=== PATIENT | male | born 1940 | race Caucasian/White ===

== ENCOUNTER 2016-09-15 11:55 | Outpatient (CLI) | payer OTHER ==
[~2016-09-15 11:55] MED LIST: ASPIRIN EC81 MG PO; CALCIUM 500 PO; HYDROCHLOROTH12.5 M1 PO; LISINOPRIL40 MG PO; MULTIPLE VITAMIN PO; NIACIN ER500 MG PO; VITAMIN C1000 MG PO; VITAMIN D-31000 UNIT PO
--- NOTE | 2016-09-15 13:25 | DIAGNOSTIC IMAGING REPORT ---
PROCEDURE: XR CHEST 2 VIEW INDICATION: CHEST PAIN TECHNIQUE: PA and lateral views. COMPARISON: None. FINDINGS: Lungs are clear. Heart and mediastinum are normal. Thorax is normal. IMPRESSION: 1. Negative chest.
[2016-10-15] MEDS ORDERED: PANTOPRAZOLE SO40 MG PO (16:08)
[2016-10-15] MEDS ORDERED: RANITIDINE HCL150 MG PO (16:09)
[2016-10-15] MEDS ORDERED: PROAIR HFA IN (16:10)
== END 2016-09-15 23:00 ==
LOC: LAB SRH 11:55
DX: R07.9 Chest pain, unspecified (principal)
CPT/HCPCS: 90074; 90100; 90616; 95059

== ENCOUNTER 2016-12-18 09:18 | Outpatient (CLI) | payer OTHER ==
[~2016-12-18 09:18] MED LIST changes: +PANTOPRAZOLE SO40 MG PO; +PROAIR HFA IN; +RANITIDINE HCL150 MG PO
--- NOTE | 2016-12-18 10:29 | DIAGNOSTIC IMAGING REPORT ---
PROCEDURE: US ABDOMEN VASCULAR-AAA INDICATION: AORTIC ANEURYSM TECHNIQUE: Naik scale, color Doppler and spectral ultrasound of the abdominal aorta. COMPARISON: Abdominal ultrasound 07/12/2015. FINDINGS: Moderate atherosclerosis. Maximal diameter of the aorta: 3.7 cm proximally, 3.4 cm mid and 2.3 cm distally. Right iliac artery measures 1.1 cm and left iliac artery 1.3 cm. IMPRESSION: 1. 3.7 cm proximal (previously 3.6) and 3.4 cm mid (previously 3.2) abdominal aortic aneurysms.
--- NOTE | 2016-12-18 10:35 | DIAGNOSTIC IMAGING REPORT ---
PROCEDURE: DEXA BONE DENSITY STUDY CLINICAL INDICATION: CHECK FOR OSTEOPOROSIS COMPARISON: None. FINDINGS: LUMBAR SPINE: Bone mineral density 0.983 g/cm2, T score -1.0 normal LEFT HIP: Bone mineral density 0.734 g/cm2, T score -2.0 osteopenia LEFT FEMORAL NECK: Bone mineral density 0.485 g/cm2, T score -3.3 osteoporosis FRACTURE RISK CALCULATION ( when applicable): 10-year fracture risk of a major osteoporotic fracture and of a hip fracture not reported because some T-score at or below -2.5 (T score greater or equal to -1.0 to: NORMAL) (T score from -1.1 to -2.4: OSTEOPENIA) (T score ess than or equal to -2.5: OSTEOPOROSIS) IMPRESSION: 1. Osteoporosis femoral neck, osteopenia left hip.
== END 2016-12-18 23:00 ==
LOC: US SRH 09:18
DX: M81.0 Age-related osteoporosis without current pathological fracture (principal); I71.4 Abdominal aortic aneurysm, without rupture

== ENCOUNTER 2017-01-01 09:18 | Outpatient (CLI) | payer OTHER ==
[2017-01-01 09:52] VITALS: BP 147/89
--- NOTE | 2017-01-01 10:04 | NUR ---
PT HERE FOR OUTPT RECLAST INFUSTION. DRUG WELL EXPLAINED BY PHARMACIST. I WELL EXPLAINED THE CARE PLAN, AND POTENTIAL SIDE EFFECTS WELL ORIENTED PT TO ROOM AND CALL LIGHT. EXPLAINED TO USE CALL LIGHT FOR ANY NEEDS/TO REPORT SIDE EFFECTS. GAVE PT WARM BLANKET AND COFFEE. WILL MONITIOR.
== END 2017-01-01 10:34 | disposition home or self-care (01) ==
LOC: SDP SRH 09:18 → ACUTE2 SRH 09:22 → SDP SRH 10:00
PROC: 3E033GC Introduction of Other Therapeutic Substance into Peripheral Vein, Percutaneous Approach (ICD-10-PCS; principal; 2017-01-01)
DX: M81.0 Age-related osteoporosis without current pathological fracture (principal)

== ENCOUNTER 2017-01-08 11:32 | Emergency (ER) | payer OTHER ==
--- NOTE | 2017-01-08 13:25 | DIAGNOSTIC IMAGING REPORT ---
PROCEDURE: XR CHEST 2 VIEW INDICATION: CHEST PAIN TECHNIQUE: PA and lateral views. COMPARISON: Compared to chest x-ray on 01/08/2017. FINDINGS: Pulmonary hyperexpansion and chronic obstructive pulmonary disease. Development of mild layers subsegmental atelectasis (versus scarring) at the left anterior lung base. Lungs are otherwise clear Heart and mediastinum are normal. Thorax is normal. IMPRESSION: 1. Chronic obstructive pulmonary disease. 2. Minor linear subsegmental atelectasis or scarring at the left anterior lung base. 3. Findings discussed with Dr. Christian Blanca.
--- NOTE | 2017-01-08 15:58 | DIAGNOSTIC IMAGING REPORT ---
PROCEDURE: CTA THORAX WITH CONTRAST INDICATION: CP + D-DIMER TECHNIQUE: 84 ml of Isovue 370 was injected intravenously and axial images were obtained of the chest with 3D sagittal and coronal MIP reconstructions. COMPARISON: 10/20/2007 and Chest x-ray From the same day FINDINGS: Normal opacification of the pulmonary arterial tree without filling defect. The central pulmonary arteries are normal caliber. Ectatic thoracic aorta measuring 3.4 cm in the ascending portion, 3.0 cm at the arch, and 3.3 cm in the descending portion. Scattered mixed calcified and noncalcified atherosclerosis. Moderate coronary artery calcification. Small anterior pericardial thickening. No pericardial effusion. Mild calcification at the origins of the great vessels. Bovine arch anatomy. No adenopathy or mediastinal masses. The esophagus is normal in caliber without hiatal hernia. The thyroid gland is normal. Moderate centrilobular emphysematous changes in the upper lobes. Moderate interstitial scarring bilaterally in the lower lobes. 9 mm nodule left lower lung adjacent a curvilinear interstitial scarring. Mild right base atelectatic changes. Central lobular cystic changes of emphysema in the right lower lobe as well. Scattered areas of upper lobe patchy opacity, likely tiny scars or inflammatory changes. Minor lingular atelectasis. The airway is patent and branches normally. No pleural effusions or pneumothorax. Osseous structures are intact. The images obtained of the upper abdomen are normal. IMPRESSION: 1. No pulmonary embolus. 2. Moderate emphysema. 3. 9 mm left lower lobe lung nodule suggestive of rounded atelectasis, however given emphysematous changes, 3-month follow-up chest CT is recommended for further evaluation. 4. Bilateral interstitial and parenchymal scarring. 5. Findings called to the emergency room.
--- NOTE | 2017-01-08 16:32 | ED ORDER SUMMARY ---
..... Patient: AWAIS ALCALA OrderSheet [facility] VisitID: [id number] [address] [place] [address] 76y, M Registration Date/Time: 01/08/2017 ORDER SHEET Weight: 61.2 kg (stated) Allergies: Penicillins, Eggs or Egg-derived Products GENERAL ORDERS: Chest 2V Urgent (12:01/08/2017 Keyonna Montelongo) (Ack 12:09 Rosaura ER Tech1) (12:59 RFay) Corduroy Cutter Operator (Continuous) (CP) (12:01/08/2017 Keyonna Montelongo) (Ack 12:09 Rosaura ER Tech1) (12:09 DDean R.N.) CBC w Diff Urgent (12:01/08/2017 Keyonna Montelongo) (Ack 12:09 Rosaura ER Tech1) (12:32 DDean R.N.) CMP Urgent (12:01/08/2017 Keyonna Montelongo) (Ack 12:09 Rosaura ER Tech1) (12:32 DDean R.N.) PT with INR Urgent (12:01/08/2017 Keyonna Montelongo) (Ack 12:09 Rosaura ER Tech1) (12:32 DDean R.N.) D-Dimer Urgent (12:01/08/2017 Keyonna Montelongo) (Ack 12:09 Rosaura ER Tech1) (12:32 DDean R.N.) Troponin-I Urgent (12:01/08/2017 Keyonna Montelongo) (Ack 12:09 Rosaura ER Tech1) (12:32 DDean R.N.) Pulse oximeter (12:01/08/2017 Keyonna Montelongo) (12:09 DDean R.N.) (Ack 12:09 Rosaura QUINONES Tech1) EKG - ER Stat (12:01/08/2017 Keyonna Montelongo) (Ack 12:09 Rosaura ER Tech1) (13:03 RKaruga) TSH Urgent (12:01/08/2017 Keyonna Montelongo) (Ack 12:09 IJurca ER Tech1) (12:32 DDean R.N.) CTA Thorax w Cont (No) (N/A) Urgent (14:45 01/08/2017 Keyonna Montelongo) (Ack 14:49 IJalexandria ER Tech1) (15:53 RFay) MEDICATION ORDERS: - (Benztropine IV 1 mg once now) (15:51 01/08/2017 Keyonna Montelongo) (Cancelled: Other15:52 Keyonna Montelongo) IV FLUIDS: IV NS : initial bolus 500 mL (1000 mL/hr), then none - for X1 (NOW) (12:07 01/08/2017 Keyonna Montelongo) (12:35 DDean R.N.) ORDER SHEET NOTES: [Electronically signed by Ila Templeton R.N. (17:55 01/08/2017)] [Electronically signed by Christian Blanca Dr. (16:53 01/12/2017)] [Electronically locked/signed by Ila Templeton R.N. (17:55 01/08/2017)]
--- NOTE | 2017-01-08 16:32 | ED NURSING NOTES ---
Clinical Report - Nurses [facility] [address] [place] [address] 01/08/2017 11:32 [id number] Triage time 11:40. Acuity: LEVEL 3. Chief Complaint: HEADACHE, WEAKNESS and NECK PAIN (stiff neck, CP with deep breath). Alert. No acute distress. JEANETTE COMA SCORE: [place] Coma Scale: 15- eyes open spontaneously (4); best verbal response- oriented x 4 (5); best motor response- obeys commands (6). --11:50 Ila Templeton R.N. 11:39 01/08/17. BP: 152/85. HR: 99. RR: 14. O2 saturation: 98% on room air. Temp: 98.7 F (oral). Pain level now: 06/16. --11:50 Ila Templeton R.N. Weight: 61.2 kg stated. Height/Length: 70 inches Per Patient. BMI: 19.4. --11:48 Ila Templeton R.N. Medications Ranitidine HCl Oral 150 mg, 2x a day. --12:08 Ila Templeton R.N. Pantoprazole Sodium Oral 40 mg, daily. --12:09 Ila Templeton R.N. Lisinopril Oral 40 mg, daily. --12:09 Ila Templeton R.N. ProAir HFA Inhalation 2 puffs, 4x a day as needed. --12:10 Ila Templeton R.N. Hydrochlorothiazide Oral 25 mg, daily. --12:10 Ila Templeton R.N. Incruse Elpt 1 puff, daily. --12:12 Ila Templeton R.N. Allergies Penicillins. --11:44 Ila Templeton R.N. Eggs or Egg-derived Products. --11:44 Ila Templeton R.N. History Arrived by private vehicle. Historian: patient and family. Accompanied by family. Primary physician (Jacinta). ( had RECLAST 5 mg one week ago and symptoms started last thursday and increasing daily). SOCIAL HX: Smoker- current status unknown (tobacco pouches). Alcohol use; consumes two liquor daily. History of drug use: marijuana. FALL RISK ASSESSMENT: Fall risk assessment completed. No fall risk identified. FUNCTIONAL ASSESSMENT: Functional assessment: no impairments noted. LEARNING NEEDS ASSESSMENT: The learning needs assessment revealed no barriers. --11:50 Ila Templeton R.N. PROBLEMS: Osteoporosis. Hypertension. Gastroesophageal Reflux Disease. COPD - Chronic Obstructive Pulmonary Disease. --11:46 Ila Templeton R.N. ADDITIONAL SURGERIES: Appendectomy. Tonsillectomy. --11:46 Ila Templeton R.N. Assessment GENERAL / NEURO / PSYCH: Alert. Oriented X 4. Appears in no acute distress. Patient appears calm and cooperative. RESPIRATORY: Respirations not labored. CVS: Cardiac rhythm: sinus tachycardia; occasional ectopic beats. --11:50 Ila Templeton R.N. Interventions ID and allergy band on patient. To treatment room. --11:50 Ila Templeton R.N. PHYSICAL ASSESSMENT 11:53 01/08/17. To room via wheelchair. Patient gowned. ( decreased appetite, bilat thumb joint pain and swelling). GENERAL / NEURO / PSYCH: Alert. Oriented X 4. Appears in no acute distress. RESPIRATORY: Respirations not labored. CVS: Cardiac rhythm: sinus tachycardia; occasional ectopic beats. SKIN: Skin is warm and dry. --11:53 Ila Templeton R.N. NURSING PROGRESS NOTES 11:50 01/08/2017 Site #1 started via IV in the left antecubital space with an 20g angiocath, with aseptic technique and good blood return; one attempt. Blood drawn: rainbow set. Labeled in the presence of the patient and sent to the lab. Saline lock flushed with 10 mL saline. --12:09 Jerrica Ayala R.N. 11:54 01/08/17. Cardiac rhythm: sinus rhythm; occasional ectopic beats. electronic device monitor, pulse oximeter and NIBP monitor placed on patient. Patient gowned. Head of bed elevated. Call light placed in reach. Side rails up x 1. Bed placed in lowest position. Brakes of bed on. --11:54 Ila Templeton R.N. 12:34 01/08/2017 Started bag #1 1000 mL IV Fluids IV NS (Saline); bolus of 500 mL over 30 minute(s) then at 50 mL/hr over 10 hour(s) via site #1 via IV pump. Allergies verified and confirmed 5 rights. IV patency established. IV site checked: no pain, redness, or swelling. IV flushed thoroughly pre- and post-medication administration. --12:35 Jerrica Ayala R.N. EKG time: (12:16 PM). EKG was performed by a tech and shown to the ED physician. --13:04 Junie Jarvis 13:14 01/08/2017 IV Fluids IV NS via IV site #1 Rate Changed: bag #1 decreased to 50 mL/hr via IV pump. --13:15 Ila Templeton R.N. 13:16 01/08/17. The patient is resting quietly. Overall patient status is the same- he states feels the same. RESPIRATORY: No respiratory distress. CVS: Cardiac rhythm: sinus rhythm. SKIN: Skin is warm and dry. --13:16 Ila Templeton R.N. 13:25 01/08/17. BP: 130/81. HR: 88. RR: 18. O2 saturation: 96% on room air. Temp: deferred. Pain level now: 10/10. Additional comments: pt states that his hand pain/joint swelling started in thumbs 3 days ago, now also in 4th and 5th digits. This is a new problem. --13:31 Jerrica Ayala R.N. 14:04 01/08/17. ( ambulated to bathroom. stable on feet). --14:04 Jerrica Ayala R.N. 14:19 01/08/17. The patient is resting quietly. Overall patient status is the same- he states feels the same. RESPIRATORY: No respiratory distress. SKIN: Skin is warm and dry. --14:22 Ila Templeton R.N. 15:26 01/08/17. BP: 158/98. HR: 87. RR: 18. O2 saturation: 100%. --15:27 Ila Templeton R.N. 15:26 01/08/17. The patient is resting quietly. Overall patient status is the same- he states feels the same. RESPIRATORY: No respiratory distress. SKIN: Skin is warm and dry. --15:27 Ila Templeton R.N. 15:30 pt c/o being hungry, ERMD OK with him eating now. --15:30 Ila Templeton R.N. ( splitting machine operator helper was at patient's bedside to help with disconnecting monitor to allow patient to go to the restroom.). --15:46 Junie Jarvis 16:15. Reassessment after fluids administered and procedure. He is calm and resting quietly. Overall patient status is improved- he states feels the same. RESPIRATORY: No respiratory distress. CVS: Cardiac rhythm: sinus rhythm. SKIN: Skin is warm and dry. --17:20 Ila Templeton R.N. 17:05. The patient is resting quietly. Overall patient status is improved- he states feels better. RESPIRATORY: No respiratory distress. SKIN: Skin is warm and dry. --17:20 Ila Templeton R.N. 17:05 01/08/2017 Site #1 removed upon discharge. Catheter intact. Bandaid applied. --17:21 Ila Templeton R.N. 17:01/08/2017 IV Fluids IV NS Discontinued: bag #1 discontinued upon discharge. Total amount infused: 700 mL. --17:21 Ila Templeton R.N. 12:15 01/08/17. BP: 120/74. HR: 98. RR: 15. O2 saturation: 97% on room air. --17:52 Ila Templeton R.N. 14:15 01/08/17. BP: 140/82. HR: 84. RR: 11. O2 saturation: 96%. --17:53 Ila Templeton R.N. 16:15 01/08/17. BP: 136/85. HR: 90. RR: 11. O2 saturation: 97% on room air. --17:54 Ila Templeton R.N. DISPOSITION / DISCHARGE Departure time: 1705. Condition at departure: stable. No learning barriers present. Discharge instructions provided and reviewed with the patient. Reviewed medication(s). Prescription(s) given to the patient. Patient verbalized understanding. Written instructions provided in Cook Islander. The patient was discharged home and accompanied by spouse. He left the Emergency Department ambulatory and via private vehicle. Spouse driving. FALL RISK ASSESSMENT: Fall risk assessment completed. No fall risk identified. --17:19 Ila Templeton R.N. 17:05 01/08/17. BP: 144/94. HR: 88. RR: 20. O2 saturation: 99% on room air. Pain level now: 03/16. --17:19 Ila Templeton R.N. Locked/Released at 01/08/2017 17:55 by Ila Templeton R.N.
--- NOTE | 2017-01-08 16:32 | ED ORDER SUMMARY ---
..... Patient: AWAIS ALCALA OrderSheet [facility] VisitID: [id number] [address] [place] [address] 76y, M Registration Date/Time: 01/08/2017 ORDER SHEET Weight: 61.2 kg (stated) Allergies: Penicillins, Eggs or Egg-derived Products GENERAL ORDERS: Chest 2V Urgent (12:01/08/2017 Keyonna Montelongo) (Ack 12:09 Rosaura ER Tech1) (12:59 RFay) Exchange Floor Manager (Continuous) (CP) (12:01/08/2017 Keyonna Montelongo) (Ack 12:09 Rosaura ER Tech1) (12:09 DDean R.N.) CBC w Diff Urgent (12:01/08/2017 Keyonna Montelongo) (Ack 12:09 Rosaura ER Tech1) (12:32 DDean R.N.) CMP Urgent (12:01/08/2017 Keyonna Montelongo) (Ack 12:09 Rosaura ER Tech1) (12:32 DDean R.N.) PT with INR Urgent (12:01/08/2017 Keyonna Montelongo) (Ack 12:09 Rosaura ER Tech1) (12:32 DDean R.N.) D-Dimer Urgent (12:01/08/2017 Keyonna Montelongo) (Ack 12:09 Rosaura ER Tech1) (12:32 DDean R.N.) Troponin-I Urgent (12:01/08/2017 Keyonna Montelongo) (Ack 12:09 Rosaura ER Tech1) (12:32 DDean R.N.) Pulse oximeter (12:01/08/2017 Keyonna Montelongo) (12:09 DDean R.N.) (Ack 12:09 Rosaura QUINONES Tech1) EKG - ER Stat (12:01/08/2017 Keyonna Montelongo) (Ack 12:09 Rosaura ER Tech1) (13:03 RKaruga) TSH Urgent (12:01/08/2017 Keyonna Montelongo) (Ack 12:09 IJurca ER Tech1) (12:32 DDean R.N.) CTA Thorax w Cont (No) (N/A) Urgent (14:45 01/08/2017 Keyonna Montelongo) (Ack 14:49 IJalexandria ER Tech1) (15:53 RFay) MEDICATION ORDERS: - (Benztropine IV 1 mg once now) (15:51 01/08/2017 Keyonna Montelongo) (Cancelled: Other15:52 Keyonna Montelongo) IV FLUIDS: IV NS : initial bolus 500 mL (1000 mL/hr), then none - for X1 (NOW) (12:07 01/08/2017 Keyonna Montelongo) (12:35 DDean R.N.) ORDER SHEET NOTES: [Electronically signed by Ila Templeton R.N. (17:55 01/08/2017)] [Electronically signed by Christian Blanca Dr. (16:53 01/12/2017)] [Electronically locked/signed by Ila Templeton R.N. (17:55 01/08/2017)]
--- NOTE | 2017-01-08 16:32 | ED CLINICAL REPORT ---
Clinical Report - Physicians/Mid Levels Formerly [facility] [address] [place] [address] 01/08/2017 11:32 Patient: AWAIS ALCALA Time Seen: 1202; initial patient contact. Arrived- By private vehicle. Historian- patient. HISTORY OF PRESENT ILLNESS Chief Complaint: CHEST PAIN. At its maximum, severity described as moderate. When seen in the E.D., severity described as moderate. Modifying factors- worsened by deep breaths. Not relieved by anything. It is described as sharp and it is described as located in the central chest area. No radiation. This started Past few days and is still present (worsening). It was gradual in onset and has been intermittent and waxing/waning but is not gone now. Onset during rest. No nausea, vomiting, difficulty breathing or diaphoresis. (rreports recently taking a medication for osteoporosis prior to the onset of his symptoms. Patient also reports generalized body aches and cramping.). No additional chest pain. Similar symptoms previously: None. Recent medical care: Not recently seen/assessed. REVIEW OF SYSTEMS No fever or sore throat. All systems otherwise negative, except as recorded above. PAST HISTORY See nurses notes. Medications: Incruse Elpt 1 puff, daily. Hydrochlorothiazide Oral 25 mg, daily. ProAir HFA Inhalation 2 puffs, 4x a day as needed. Lisinopril Oral 40 mg, daily. Pantoprazole Sodium Oral 40 mg, daily. Ranitidine HCl Oral 150 mg, 2x a day. Allergies: Eggs or Egg-derived Products. Penicillins. SOCIAL HISTORY Never smoker. No alcohol use or drug use. No recent travel. Is a local resident. FAMILY HISTORY Negative. ADDITIONAL NOTES The nursing notes have been reviewed. PHYSICAL EXAM Vital Signs: 01/08/2017 11:39 BP: 152/85. HR: 99. RR: 14. O2 saturation: 98%. Temp: 98.7 F. Pain level now: 10/10. Oxygen saturation normal. Appearance: Alert. Oriented X3. No acute distress. Eyes: Pupils equal, round and reactive to light. Eyes normal inspection. ENT: Ears normal. Nose normal. Pharynx normal. Neck: Normal inspection. Neck supple. No meningeal signs. CVS: Normal heart rate and rhythm. Heart sounds normal. Pulses normal. Respiratory: No respiratory distress. Breath sounds normal. No rales, rhonchi or wheezes. Abdomen: Soft and nontender. Bowel sounds normal. Back: Normal external inspection. Skin: Skin warm and dry. Normal skin color. No rash. Normal skin turgor. Extremities: Extremities exhibit normal ROM. No lower extremity edema. LABS, X-RAYS, AND EKG EKG: Atrial fibrillation (130). Normal QRS complex. Normal axis. Normal ST and T waves, QT and QTc. The study has been interpreted contemporaneously. The study has been independently viewed by me. The EKG appears to be a good tracing. Chest X-ray: (PROCEDURE: XR CHEST 2 VIEW INDICATION: CHEST PAIN TECHNIQUE: PA and lateral views. COMPARISON: Compared to chest x-ray on 01/08/2017. FINDINGS: Pulmonary hyperexpansion and chronic obstructive pulmonary disease. Development of mild layers subsegmental atelectasis (versus scarring) at the left anterior lung base. Lungs are otherwise clear Heart and mediastinum are normal. Thorax is normal. IMPRESSION: 1. Chronic obstructive pulmonary disease. 2. Minor linear subsegmental atelectasis or scarring at the left anterior lung base.). Views: PA and lateral. The X-rays were independently viewed by me and interpreted by the radiologist. The X-rays were discussed with the radiologist (via PACS). Chest CT: (PROCEDURE: CTA THORAX WITH CONTRAST INDICATION: CP + D-DIMER TECHNIQUE: 84 ml of Isovue 370 was injected intravenously and axial images were obtained of the chest with 3D sagittal and coronal MIP reconstructions. COMPARISON: 10/20/2007 and Chest x-ray From the same day FINDINGS: Normal opacification of the pulmonary arterial tree without filling defect. The central pulmonary arteries are normal caliber. Ectatic thoracic aorta measuring 3.4 cm in the ascending portion, 3.0 cm at the arch, and 3.3 cm in the descending portion. Scattered mixed calcified and noncalcified atherosclerosis. Moderate coronary artery calcification. Small anterior pericardial thickening. No pericardial effusion. Mild calcification at the origins of the great vessels. Bovine arch anatomy. No adenopathy or mediastinal masses. The esophagus is normal in caliber without hiatal hernia. The thyroid gland is normal. Moderate centrilobular emphysematous changes in the upper lobes. Moderate interstitial scarring bilaterally in the lower lobes. 9 mm nodule left lower lung adjacent a curvilinear interstitial scarring. Mild right base atelectatic changes. Central lobular cystic changes of emphysema in the right lower lobe as well. Scattered areas of upper lobe patchy opacity, likely tiny scars or inflammatory changes. Minor lingular atelectasis. The airway is patent and branches normally. No pleural effusions or pneumothorax. Osseous structures are intact. The images obtained of the upper abdomen are normal. IMPRESSION: 1. No pulmonary embolus. 2. Moderate emphysema. 3. 9 mm left lower lobe lung nodule suggestive of rounded atelectasis, however given emphysematous changes, 3-month follow-up chest CT is recommended for further evaluation. 4. Bilateral interstitial and parenchymal scarring.). Chest CT performed with contrast. The study was independently viewed by me and interpreted by the radiologist. The study was discussed with the radiologist (via phone and pacs). Laboratory Tests: CBC w Diff: (RENEA: 01/08/2017 11:45) ( Mscvd 01/08/2017 12:43) Final results Test Result Flag Units (Reference) WHITE BLOOD COUNT 5.1 K/uL (4.5-11.5) RED BLOOD COUNT 4.28 L M/uL (4.50-5.90) HEMOGLOBIN 14.0 gm/dL (13.5-17.5) HEMATOCRIT 41.1 % (41.0-53.0) MEAN CELL VOLUME 96 fL (80-100) MEAN CORPUSCULAR HGB 33 pg (26-34) MEAN CORPUSCULAR HGB CONC 34 g/dL (31-37) RED CELL DISTRIBUTION WIDTH 12.7 % (11.6-14.8) PLATELET COUNT 233 K/uL (150-400) NEUTROPHIL % 64.7 % (50-75) LYMPH % 19.7 L % (25-40) MONO % 13.9 % (3-14) EOSINOPHIL % 1.2 % (0-4) BASOPHIL % 0.5 % (0-2) PT with INR: (RENEA: 01/08/2017 11:45) ( MsgRcvd 01/08/2017 12:30) Final results Test Result Flag Units (Reference) INR 1.0 (0.8-1.2) Low Intensity Therapy: INR 1.5-2.0 PT range 18.5-23.1Mod.Intensity Therapy: INR 2.0-3.0 PT range 23.1-31.5High Intensity Therapy: INR 2.5-3.5 PT range 27.4-35.5High Intensity Therapy 2: INR 3.0-4.0 PT range 31.5-39.3 D-DIMER QUANTITATIVE 0.60 H ug/mLFEU (0.27-0.52) The primary value of this quantitative assay relates toits negative predictive value (i.e. exclusion) of pulmonaryembolism/deep vein thrombosis/DIC.Elevated levels of d-dimer may also occur with:, age, cancer, inflammation, liver disease,post-op, infection, hematoma, coronary disease, peripheralarteriopathy, bleeding disorders and thrombolytic treatment.Results should be correlated with other clinical andradiological data.Testing Methodology: Latex Immunoassay CMP: (RENEA: 01/08/2017 11:45) ( MsgRcvd 01/08/2017 14:07) Final results Test Result Flag Units (Reference) GLUCOSE 125 H mg/dL (70-110) BUN 16 mg/dL (7-18) CREATININE 1.5 H mg/dL (0.6-1.3) Estimated GFR 48.36 mL/min Estimated GFR- 58.61 mL/min Note: Persistent reduction over 3 months in eGFR<60 mL/min/1.73 m2 defines CKD. Patients with eGFR values>=60 mL/min/1.73 m2 may also have CKD if evidence ofpersistent proteinuria. Additional information may be foundat www.[email or web address].org. SODIUM 137 mmol/L (136-145) POTASSIUM 3.9 mmol/L (3.5-5.1) CHLORIDE 99 mmol/L (98-107) CARBON DIOXIDE 26 mmol/L (21-32) CALCIUM 8.9 mg/dL (8.5-10.1) TOTAL PROTEIN 7.5 g/dL (6.4-8.2) ALBUMIN 3.5 g/dL (3.3-5.0) BILIRUBIN, TOTAL 0.5 mg/dL (0.0-1.0) ALKALINE PHOSPHATASE 49 U/L (46-116) AST (SGOT) 17 U/L (15-37) ALT (SGPT) 19 U/L (12-78) TROPONIN I 0.06 ng/mL (0.00-1.5) TROPONIN REFERENCE RANGE:<0.1 NEGATIVE0.1-1.5 INDETERMINANT>1.5 POSITIVE THYROID STIMULATING HORMONE 0.520 uIU/mL (0.30-3.74) . PROGRESS AND PROCEDURES Course of Care: the patient is a pleasant 76-year-old male presenting for evaluation of chest pain. At this time symptoms appear to be atypical however directable diagnosis at this time includes pulmonary embolism, pneumonia, myocardial infarction, or aortic dissection. Patient will be evaluated with a d-dimer. Had a discussion with the patient in regards to d-dimer and potential need for CTA of the chest. Initial EKG is noted to be unremarkable. Patient is agreeable to the treatment plan including laboratory studies and chest x-rays well. Patient is otherwise nontoxic and in no acute distress. Patient is smiling and cooperative. Patient declining offers of pain medication at this time. The patient's workup was unremarkable for the findings above. Patient with negative troponin. However patient did have positive d-dimer. Because of the patient's pain symptomatology and positive d-dimer would be concerning for pulmonary embolism or thoracic aortic dissection. Patient is agreeable to the CT scan. Patient's workup is unremarkable for the findings above. No acute findings noted. Because the patient's negative findings here in the emergency department and likely chest pain from the medication he had recently started, do not fill symptoms at this time or cardiac in nature. Had a discussion with the patient in regards to chest pain and follow up for the chest pain. Recommended patient follow-up as an outpatient with cardiology for risk stratification. At this time feel the patient is otherwise at low risk given his negative workup here in emergency department. Patient is stable outpatient candidate. Patient continues to be nontoxic and in no acute distress. Breathing is nonlabored. Discussed with patient his workup here in the emergency department regarding diagnosis, home care, follow-up, and return precautions. All questions have been answered. The patient expressed understanding of these instructions and was agreeable to them. Disposition: Discharged. Condition: good. CLINICAL IMPRESSION 01/08/2017 15:26 BP: 158/98. HR: 87. RR: 18. O2 saturation: 100%. 01/08/2017 13:25 BP: 130/81. HR: 88. RR: 18. O2 saturation: 96%. Pain level now: 1010. Hypertensive. Oxygen saturation normal. Atypical chest pain .12 lead EKG performed. (acute substernal). Incidental lung nodule left lower lung. INSTRUCTIONS Warnings: Further evaluation is necessary (recheck 9 mm left lower lung nodule). It is very important to follow up with a physician. CONTROLLED SUBSTANCE WARNINGS. GENERAL WARNINGS: Return or contact your physician immediately if your condition worsens or changes unexpectedly, if not improving as expected, or if other problems arise. SPECIFICALLY, return if you develop chest, neck, jaw, shoulder, arm, or back pain, difficulty breathing, a fluttering sensation in your chest, lightheadedness, fainting, excessive fatigue, or sudden sweating. Your Current Medications: CONTINUE TAKING THE FOLLOWING MEDICATIONS: Hydrochlorothiazide Oral : 25 mg daily. Incruse Elpt* : 1 puff daily. Lisinopril Oral : 40 mg daily. Pantoprazole Sodium Oral : 40 mg daily. ProAir HFA Inhalation : 2 puffs 4x a day, prn. Ranitidine HCl Oral : 150 mg 2x a day. Prescription Medications: [place] 5 mg / 325 mg tablets: take 1 orally every 6 hours as needed for pain. Dispense twelve (12). No refill. Substitution is permissible. OTC Medications: Motrin (available over the counter): take according to label instructions. Follow-up: Return to the emergency department as needed. Follow up with your doctor in three days. Reason for referral: recheck today's concerns. Summary of care provided to patient via paper. Screening today revealed the patient's blood pressure to be in the normal range. The patient should follow up with a primary care provider for blood pressure management. Understanding of the discharge instructions verbalized by patient. (Electronically signed by Christian Blanca Dr. 01/12/2017 16:53)
--- NOTE | 2017-01-12 16:54 | ED MED RECONCILIATION SUMMARY ---
Patient: AWAIS ALCALA Medication Reconciliation Report [facility] VisitID: [id number] [address] [place] [address] 76y, M Registration Date/Time: 01/08/2017 Weight: 61.2 kg Height/Length: 70 in. BMI: 19.4 ALLERGIES: Eggs or Egg-derived Products, Penicillins The patient's Home Medications are listed below: CONTINUE TAKING THE FOLLOWING MEDICATIONS: Hydrochlorothiazide Oral 25 mg, daily Incruse Elpt 1 puff, daily Lisinopril Oral 40 mg, daily Pantoprazole Sodium Oral 40 mg, daily ProAir HFA Inhalation 2 puffs, 4x a day Ranitidine HCl Oral 150 mg, 2x a day The source(s) of the original Home Medication information: Not obtained. The following Medications were given to the patient in the Emergency Department: IV NS IV Fluids bolus 500 mL over 30 minute(s), then 50 mL/hr, administered: 01/08/2017 12:34:00 PM The following Medications were prescribed to the patient: Motrin (available over the counter): take according to label instructions. -- Christian Blanca Dr. Norco 5 mg / 325 mg tablets: take 1 orally every 6 hours as needed for pain. Dispense twelve (12). No refill. Substitution is permissible. -- Christian Blanca Dr.
--- NOTE | 2017-01-12 16:54 | ED DISCHARGE INSTRUCTIONS ---
Patient: AWAIS ALCALA General Instructions [facility] VisitID: [id number] [address] [place] [address] 76y, M Registration Date/Time: 01/08/2017 01/08/2017 15:26 BP: 158/98. HR: 87. RR: 18. O2 saturation: 100%. 01/08/2017 13:25 BP: 130/81. HR: 88. RR: 18. O2 saturation: 96%. Pain level now: 06/16. Hypertensive. Oxygen saturation normal. Atypical chest pain .12 lead EKG performed. (acute substernal). Incidental lung nodule left lower lung. INSTRUCTIONS Warnings: Further evaluation is necessary (recheck 9 mm left lower lung nodule). It is very important to follow up with a physician. CONTROLLED SUBSTANCE WARNINGS. GENERAL WARNINGS: Return or contact your physician immediately if your condition worsens or changes unexpectedly, if not improving as expected, or if other problems arise. SPECIFICALLY, return if you develop chest, neck, jaw, shoulder, arm, or back pain, difficulty breathing, a fluttering sensation in your chest, lightheadedness, fainting, excessive fatigue, or sudden sweating. Your Current Medications: CONTINUE TAKING THE FOLLOWING MEDICATIONS: Hydrochlorothiazide Oral : 25 mg daily. Incruse Elpt* : 1 puff daily. Lisinopril Oral : 40 mg daily. Pantoprazole Sodium Oral : 40 mg daily. ProAir HFA Inhalation : 2 puffs 4x a day, prn. Ranitidine HCl Oral : 150 mg 2x a day. Prescription Medications: [place] 5 mg / 325 mg tablets: take 1 orally every 6 hours as needed for pain. Dispense twelve (12). No refill. Substitution is permissible. OTC Medications: Motrin (available over the counter): take according to label instructions. Follow-up: Return to the emergency department as needed. Follow up with your doctor in three days. Reason for referral: recheck today's concerns. Summary of care provided to patient via paper. Screening today revealed the patient's blood pressure to be in the normal range. The patient should follow up with a primary care provider for blood pressure management. Understanding of the discharge instructions verbalized by patient. ADDITIONAL INFORMATION Chest Pain, Uncertain Cause Chest pain can happen for a number of reasons. Sometimes the cause can not be determined. If yourcondition does not seem serious, and your pain does not appear to be coming from your heart, your doctor may recommend watching it closely. Sometimes the signs of a serious problem take more time to appear. Therefore, watch for the warning signs listed below. Home care After your visit, follow these recommendations: Rest today and avoid strenuous activity. Take any prescribed medicine as directed. Follow-up care Follow up with your doctor or this facility as instructed or if you do not start to feel better within 24 hours. Call 911 Get immediate medical attention if any of the following occur: A change in the type of pain: if it feels different, becomes more severe, lasts longer, or begins to spread into your shoulder, arm, neck, jaw or back Shortness of breath or increased pain with breathing Weakness, dizziness, or fainting Rapid heart beat Get prompt medical attention Call your doctor right away if any of the following occur: Cough with dark colored sputum (phlegm) or blood Fever of 100.4F(38C) or higher, or as directed by your health care provider Swelling, pain or redness in one leg Hydrocodone Bitartrate, Acetaminophen Oral tablet What is this medicine? ACETAMINOPHEN; HYDROCODONE (a set a TARAN vargas fen; lambert droe KOE done) is a pain reliever. It is used to treat mild to moderate pain. How should I use this medicine? Take this medicine by mouth. Swallow it with a full glass of water. Follow the directions on the prescription label. If the medicine upsets your stomach, take the medicine with food or milk. Do not take more than you are told to take. Talk to your calibration tester regarding the use of this medicine in children. This medicine is not approved for use in children. What side effects may I notice from receiving this medicine? Side effects that you should report to your doctor or health women's health care nurse practitioner as soon as possible: allergic reactions like skin rash, itching or hives, swelling of the face, lips, or tongue breathing problems confusion feeling faint or lightheaded, falls stomach pain yellowing of the eyes or skin Side effects that usually do not require medical attention (report to your doctor or health women's health care nurse practitioner if they continue or are bothersome): nausea, vomiting stomach upset What may interact with this medicine? alcohol antihistamines isoniazid medicines for depression, anxiety, or psychotic disturbances medicines for sleep muscle relaxants naltrexone narcotic medicines (opiates) for pain phenobarbital ritonavir tramadol What if I miss a dose? If you miss a dose, take it as soon as you can. If it is almost time for your next dose, take only that dose. Do not take double or extra doses. Where should I keep my medicine? Keep out of the reach of children. This medicine can be abused. Keep your medicine in a safe place to protect it from theft. Do not share this medicine with anyone. Selling or giving away this medicine is dangerous and against the law. Store at room temperature between 15 and 30 degrees C (59 and 86 degrees F). Protect from light. Keep container tightly closed. Throw away any unused medicine after the expiration date. Discard unused medicine and used packaging carefully. Pets and children can be harmed if they find used or lost packages. What should I tell my health care provider before I take this medicine? They need to know if you have any of these conditions: brain tumor Crohn's disease, inflammatory bowel disease, or ulcerative colitis drink more than 3 alcohol-containing drinks per day drug abuse or addiction head injury heart or circulation problems kidney disease or problems going to the bathroom liver disease lung disease, asthma, or breathing problems an unusual or allergic reaction to acetaminophen, hydrocodone, other opioid analgesics, other medicines, foods, dyes, or preservatives or trying to get breast-feeding What should I watch for while using this medicine? Tell your doctor or health women's health care nurse practitioner if your pain does not go away, if it gets worse, or if you have new or a different type of pain. You may develop tolerance to the medicine. Tolerance means that you will need a higher dose of the medicine for pain relief. Tolerance is normal and is expected if you take the medicine for a long time. Do not suddenly stop taking your medicine because you may develop a severe reaction. Your body becomes used to the medicine. This does NOT mean you are addicted. Addiction is a behavior related to getting and using a drug for a non-medical reason. If you have pain, you have a medical reason to take pain medicine. Your doctor will tell you how much medicine to take. If your doctor wants you to stop the medicine, the dose will be slowly lowered over time to avoid any side effects. You may get drowsy or dizzy when you first start taking the medicine or change doses. Do not drive, use machinery, or do anything that may be dangerous until you know how the medicine affects you. Stand or sit up slowly. There are different types of narcotic medicines (opiates) for pain. If you take more than one type at the same time, you may have more side effects. Give your health care provider a list of all medicines you use. Your doctor will tell you how much medicine to take. Do not take more medicine than directed. Call emergency for help if you have problems breathing. The medicine will cause constipation. Try to have a bowel movement at least every 2 to 3 days. If you do not have a bowel movement for 3 days, call your doctor or health women's health care nurse practitioner. Too much acetaminophen can be very dangerous. Do not take Tylenol (acetaminophen) or medicines that contain acetaminophen with this medicine. Many non-prescription medicines contain acetaminophen. Always read the labels carefully. You have been given the following additional information: Chest Pain, Uncertain Cause Hydrocodone Bitartrate, Acetaminophen Oral tablet (Electronically signed by Christian Blanca Dr. 01/12/2017 16:53)
--- NOTE | 2017-01-12 16:54 | ED MED RECONCILIATION SUMMARY ---
Patient: AWAIS ALCALA Medication Reconciliation Report [facility] VisitID: [id number] [address] [address] 76y, M Registration Date/Time: 01/08/2017 Weight: 61.2 kg Height/Length: 70 in. BMI: 19.4 ALLERGIES: Eggs or Egg-derived Products, Penicillins The patient's Home Medications are listed below: CONTINUE TAKING THE FOLLOWING MEDICATIONS: Hydrochlorothiazide Oral 25 mg, daily Incruse Elpt 1 puff, daily Lisinopril Oral 40 mg, daily Pantoprazole Sodium Oral 40 mg, daily ProAir HFA Inhalation 2 puffs, 4x a day Ranitidine HCl Oral 150 mg, 2x a day The source(s) of the original Home Medication information: Not obtained. The following Medications were given to the patient in the Emergency Department: IV NS IV Fluids bolus 500 mL over 30 minute(s), then 50 mL/hr, administered: 01/08/2017 12:34:00 PM The following Medications were prescribed to the patient: Motrin (available over the counter): take according to label instructions. -- Christian Blanca Dr. Norco 5 mg / 325 mg tablets: take 1 orally every 6 hours as needed for pain. Dispense twelve (12). No refill. Substitution is permissible. -- Christian Blanca Dr.
--- NOTE | 2017-01-12 16:54 | ED MAR SUMMARY ---
..... Medication Administration Record [facility] [address] [place] [address] Patient: AWAIS ALCALA Visit ID: [id number] 76y, M Weight: 61.2 kg Height/Length: 70 in BMI: 19.4 ALLERGIES: Penicillins, Eggs or Egg-derived Products Start 12:34 01/08/2017 Jerrica Ayala RXin, Stop 17:05 01/08/2017 Ila Templeton RXin Medication Administered: IV NS (SALINE), Dose: IV Fluids over 10 hour(s), Rate: 50 mL/hr, Bolus: 500 mL over 30 minute(s), Dispensed: 1000 mL bag, Site: #1 left . Medication Ordered: IV NS : initial bolus 500 mL (1000 mL/hr), then none - for X1 (NOW).
--- NOTE | 2017-01-12 16:54 | ED MAR SUMMARY ---
..... Medication Administration Record [facility] [address] [place] [address] Patient: AWAIS ALCALA Visit ID: [id number] 76y, M Weight: 61.2 kg Height/Length: 70 in BMI: 19.4 ALLERGIES: Penicillins, Eggs or Egg-derived Products Start 12:34 01/08/2017 Jerrica Ayala RXin, Stop 17:05 01/08/2017 Ila Templeton RXin Medication Administered: IV NS (SALINE), Dose: IV Fluids over 10 hour(s), Rate: 50 mL/hr, Bolus: 500 mL over 30 minute(s), Dispensed: 1000 mL bag, Site: #1 left . Medication Ordered: IV NS : initial bolus 500 mL (1000 mL/hr), then none - for X1 (NOW).
--- NOTE | 2017-01-12 16:54 | ED DISCHARGE INSTRUCTIONS ---
Patient: AWAIS ALCALA General Instructions [facility] VisitID: [id number] [address] [place] [address] 76y, M Registration Date/Time: 01/08/2017 01/08/2017 15:26 BP: 158/98. HR: 87. RR: 18. O2 saturation: 100%. 01/08/2017 13:25 BP: 130/81. HR: 88. RR: 18. O2 saturation: 96%. Pain level now: 06/16. Hypertensive. Oxygen saturation normal. Atypical chest pain .12 lead EKG performed. (acute substernal). Incidental lung nodule left lower lung. INSTRUCTIONS Warnings: Further evaluation is necessary (recheck 9 mm left lower lung nodule). It is very important to follow up with a physician. CONTROLLED SUBSTANCE WARNINGS. GENERAL WARNINGS: Return or contact your physician immediately if your condition worsens or changes unexpectedly, if not improving as expected, or if other problems arise. SPECIFICALLY, return if you develop chest, neck, jaw, shoulder, arm, or back pain, difficulty breathing, a fluttering sensation in your chest, lightheadedness, fainting, excessive fatigue, or sudden sweating. Your Current Medications: CONTINUE TAKING THE FOLLOWING MEDICATIONS: Hydrochlorothiazide Oral : 25 mg daily. Incruse Elpt* : 1 puff daily. Lisinopril Oral : 40 mg daily. Pantoprazole Sodium Oral : 40 mg daily. ProAir HFA Inhalation : 2 puffs 4x a day, prn. Ranitidine HCl Oral : 150 mg 2x a day. Prescription Medications: [place] 5 mg / 325 mg tablets: take 1 orally every 6 hours as needed for pain. Dispense twelve (12). No refill. Substitution is permissible. OTC Medications: Motrin (available over the counter): take according to label instructions. Follow-up: Return to the emergency department as needed. Follow up with your doctor in three days. Reason for referral: recheck today's concerns. Summary of care provided to patient via paper. Screening today revealed the patient's blood pressure to be in the normal range. The patient should follow up with a primary care provider for blood pressure management. Understanding of the discharge instructions verbalized by patient. ADDITIONAL INFORMATION Chest Pain, Uncertain Cause Chest pain can happen for a number of reasons. Sometimes the cause can not be determined. If yourcondition does not seem serious, and your pain does not appear to be coming from your heart, your doctor may recommend watching it closely. Sometimes the signs of a serious problem take more time to appear. Therefore, watch for the warning signs listed below. Home care After your visit, follow these recommendations: Rest today and avoid strenuous activity. Take any prescribed medicine as directed. Follow-up care Follow up with your doctor or this facility as instructed or if you do not start to feel better within 24 hours. Call 911 Get immediate medical attention if any of the following occur: A change in the type of pain: if it feels different, becomes more severe, lasts longer, or begins to spread into your shoulder, arm, neck, jaw or back Shortness of breath or increased pain with breathing Weakness, dizziness, or fainting Rapid heart beat Get prompt medical attention Call your doctor right away if any of the following occur: Cough with dark colored sputum (phlegm) or blood Fever of 100.4F(38C) or higher, or as directed by your health care provider Swelling, pain or redness in one leg Hydrocodone Bitartrate, Acetaminophen Oral tablet What is this medicine? ACETAMINOPHEN; HYDROCODONE (a set a TARAN vargas fen; lambert droe KOE done) is a pain reliever. It is used to treat mild to moderate pain. How should I use this medicine? Take this medicine by mouth. Swallow it with a full glass of water. Follow the directions on the prescription label. If the medicine upsets your stomach, take the medicine with food or milk. Do not take more than you are told to take. Talk to your melter caster regarding the use of this medicine in children. This medicine is not approved for use in children. What side effects may I notice from receiving this medicine? Side effects that you should report to your doctor or health long term care social worker as soon as possible: allergic reactions like skin rash, itching or hives, swelling of the face, lips, or tongue breathing problems confusion feeling faint or lightheaded, falls stomach pain yellowing of the eyes or skin Side effects that usually do not require medical attention (report to your doctor or health long term care social worker if they continue or are bothersome): nausea, vomiting stomach upset What may interact with this medicine? alcohol antihistamines isoniazid medicines for depression, anxiety, or psychotic disturbances medicines for sleep muscle relaxants naltrexone narcotic medicines (opiates) for pain phenobarbital ritonavir tramadol What if I miss a dose? If you miss a dose, take it as soon as you can. If it is almost time for your next dose, take only that dose. Do not take double or extra doses. Where should I keep my medicine? Keep out of the reach of children. This medicine can be abused. Keep your medicine in a safe place to protect it from theft. Do not share this medicine with anyone. Selling or giving away this medicine is dangerous and against the law. Store at room temperature between 15 and 30 degrees C (59 and 86 degrees F). Protect from light. Keep container tightly closed. Throw away any unused medicine after the expiration date. Discard unused medicine and used packaging carefully. Pets and children can be harmed if they find used or lost packages. What should I tell my health care provider before I take this medicine? They need to know if you have any of these conditions: brain tumor Crohn's disease, inflammatory bowel disease, or ulcerative colitis drink more than 3 alcohol-containing drinks per day drug abuse or addiction head injury heart or circulation problems kidney disease or problems going to the bathroom liver disease lung disease, asthma, or breathing problems an unusual or allergic reaction to acetaminophen, hydrocodone, other opioid analgesics, other medicines, foods, dyes, or preservatives or trying to get breast-feeding What should I watch for while using this medicine? Tell your doctor or health long term care social worker if your pain does not go away, if it gets worse, or if you have new or a different type of pain. You may develop tolerance to the medicine. Tolerance means that you will need a higher dose of the medicine for pain relief. Tolerance is normal and is expected if you take the medicine for a long time. Do not suddenly stop taking your medicine because you may develop a severe reaction. Your body becomes used to the medicine. This does NOT mean you are addicted. Addiction is a behavior related to getting and using a drug for a non-medical reason. If you have pain, you have a medical reason to take pain medicine. Your doctor will tell you how much medicine to take. If your doctor wants you to stop the medicine, the dose will be slowly lowered over time to avoid any side effects. You may get drowsy or dizzy when you first start taking the medicine or change doses. Do not drive, use machinery, or do anything that may be dangerous until you know how the medicine affects you. Stand or sit up slowly. There are different types of narcotic medicines (opiates) for pain. If you take more than one type at the same time, you may have more side effects. Give your health care provider a list of all medicines you use. Your doctor will tell you how much medicine to take. Do not take more medicine than directed. Call emergency for help if you have problems breathing. The medicine will cause constipation. Try to have a bowel movement at least every 2 to 3 days. If you do not have a bowel movement for 3 days, call your doctor or health long term care social worker. Too much acetaminophen can be very dangerous. Do not take Tylenol (acetaminophen) or medicines that contain acetaminophen with this medicine. Many non-prescription medicines contain acetaminophen. Always read the labels carefully. You have been given the following additional information: Chest Pain, Uncertain Cause Hydrocodone Bitartrate, Acetaminophen Oral tablet (Electronically signed by Christian Blanca Dr. 01/12/2017 16:53)
== END 2017-01-08 17:05 | disposition home or self-care (01) ==
LOC: ED SRH 11:32
DX: R07.89 Other chest pain (principal); R91.1 Solitary pulmonary nodule; J44.9 Chronic obstructive pulmonary disease, unspecified; I10 Essential (primary) hypertension; K21.9 Gastro-esophageal reflux disease without esophagitis; Z79.899 Other long term (current) drug therapy; Z88.0 Allergy status to penicillin
CPT/HCPCS: 90100; 90616; 91556; 93140; 94060; 95059